=== PATIENT | male | born 1975 ===

== ENCOUNTER 2019-12-30 06:27 | Emergency (ER) | payer OTHER ==
[~2019-12-30] VITALS: Ht 180.3 cm; Wt 63.5 kg
[2019-12-30] MEDS ORDERED: ZITHROMAX500 MG PO (11:44)
[2019-12-30] MEDS ORDERED: PEPCID20 MG PO (11:48)
== END 2019-12-30 11:51 | disposition home or self-care (01) ==
LOC: ER 06:27
DX: K29.70 Gastritis, unspecified, without bleeding (principal); Z20.828 Contact with and (suspected) exposure to other viral communicable diseases